=== PATIENT | female | born 2000 | race African-American/Black ===

== ENCOUNTER 2022-02-22 00:33 | Inpatient (IN) | payer BC ==
[2022-02-22 00:39] VITALS: BMI 39.1
[2022-02-22] MEDS ORDERED: ONDANSETRON 4 MG/2 ML VIAL IVPUSH ONE (01:19)
[2022-02-22] MEDS ORDERED: ACETAMINOPHEN 1000 MG/100 ML BAG IVPB ONE (01:19)
[2022-02-22] MEDS ORDERED: morphine CARPU-JECT 4 MG/1 ML DISP.SYRIN IVPUSH ONE (01:37)
[2022-02-22] MEDS ORDERED: morphine SULFATE 4 MG/ML VIAL ONE (01:38)
[2022-02-22] MEDS ORDERED: ONDANSETRON 4 MG/2 ML VIAL ONE ×2 (01:39→16:55)
[2022-02-22 02:39] LABS: BASO % 0.2 % (0-2.0); EOS % 0.1 % (0-4.5); HEMATOCRIT 37.1 % (32.4-45.2); HEMOGLOBIN 12.1 GM/dL (10.7-15.3); LYMPH % 7.8 % (8-40); MCH 28.7 pg (25.7-33.7); MCHC 32.5 g/dl (32.0-36.0); MEAN CELL VOLUME 88.2 fl (80-96); MEAN PLT VOLUME 7.5 fl (7.5-11.1); MONO % 3.7 % (3.8-10.2); NEUT % 88.2 % (42.8-82.8); PLATELET COUNT 349 10^3/uL (134-434); RBC 4.21 M/mm3 (3.60-5.2); RDW 14.7 % (11.6-15.6); WHITE BLOOD COUNT 9.6 K/mm3 (4.0-10.0)
[2022-02-22] MEDS ORDERED: ACETAMINOPHEN INJECTION 100 ML IVPB ONE (02:51)
[2022-02-22 02:59] LABS: CALCIUM 8.7 mg/dL (8.5-10.1); INR 1.28 (0.83-1.09); PROTHROMBIN TIME (PATIENT) 14.7 SEC (9.7-13.0)
[2022-02-22 03:00] LABS: ALBUMIN 3.5 g/dl (3.4-5.0)
[2022-02-22 03:02] LABS: ACTIVATED PTT 30.7 SECONDS (25.2-36.5)
[2022-02-22 04:47] LABS: CREATININE 0.6 mg/dL (0.55-1.3)
[2022-02-22 05:22] LABS: BILIRUBIN,TOTAL 0.5 mg/dL (0.2-1); TOT PROT 7.4 g/dl (6.4-8.2)
[2022-02-22 06:09] LABS: EPI CELLS 11 /uL (0-25.1); HYALINE CASTS 3 /uL (0-3.1); URINE APPEARANCE CLEAR; URINE BACTERIA 1303 /uL (0-1359); URINE BILIRUBIN NEGATIVE (NEGATIVE); URINE COLOR DK YELLOW; URINE GLUCOSE (UA) NEGATIVE (NEGATIVE); URINE KETONE 4+ (NEGATIVE); URINE LEUK ESTERASE 2+ (NEGATIVE); URINE NITRITE NEGATIVE (NEGATIVE); URINE PROTEIN 1+ (NEGATIVE); URINE RBC 49 /uL (0-23.9); URINE WBC 314 /uL (0-25.8)
[2022-02-22] MEDS ORDERED: CEFTRIAXONE 1,000 MG in DEXTROSE 5%-WATER - 50 ML IVPB ONE (06:35)
[2022-02-22] MEDS ORDERED: CEFTRIAXONE 1 GM/50 ML BAG ONE (06:40)
[2022-02-22] MEDS ORDERED: SODIUM CHLORIDE 0.9% 500 ML INFUS.BAG IV ONE (06:42)
[2022-02-22] MEDS ORDERED: SODIUM CHLORIDE 1,000 ML IV SCH ×2 (07:45→18:30)
[2022-02-22] MEDS ORDERED: ONDANSETRON 4 MG/2 ML VIAL IVPUSH PRN ×4 (07:49→18:31)
[2022-02-22 08:32] VITALS: RESP 18
[2022-02-22] MEDS ORDERED: CEFTRIAXONE IVPB ONE (09:00)
[2022-02-22] MEDS ORDERED: SODIUM CHLORIDE IVPB ONE (09:00)
[2022-02-22] MEDS ORDERED: LACTATED RINGERS SOLUTION 1,000 ML IV SCH (14:15)
[2022-02-22] MEDS ORDERED: PROMETHAZINE HCL 25 MG/1 ML VIAL IVPUSH PRN (14:15)
[2022-02-22] MEDS ORDERED: ROCURONIUM BROMIDE 50 MG/5 ML SYRINGE ONE ×2 (16:19→17:14)
[2022-02-22] MEDS ORDERED: MIDAZOLAM HCL 2 MG/2 ML SINGLE DOSE VIAL ONE (16:19)
[2022-02-22] MEDS ORDERED: PROPOFOL 20 ML ONE ×2 (16:19→17:48)
[2022-02-22] MEDS ORDERED: ceFAZolin SODIUM 1 GM VIAL ONE (16:20)
[2022-02-22] MEDS ORDERED: SODIUM CHLORIDE 0.9% P/F 10 ML VIAL IJ ONE (16:20)
[2022-02-22] MEDS ORDERED: LIDOCAINE HCL/PF 2% SDV 5ML VIAL ONE (16:20)
[2022-02-22] MEDS ORDERED: ceFAZolin SODIUM 1 GM VIAL IVPB ONE (16:46)
[2022-02-22] MEDS ORDERED: DEXAMETHASONE SOD PHOSPHATE 4 MG/1 ML VIAL ONE (16:55)
[2022-02-22] MEDS ORDERED: BUPIVACAINE HCL/PF 0.5% (5 MG/ML) 30 ML VIAL IJ ONE (17:38)
[2022-02-22] MEDS ORDERED: KETOROLAC TROMETHAMINE 30 MG/1 ML VIAL ONE (17:48)
[2022-02-22] MEDS ORDERED: GLYCOPYRROLATE 0.2 MG/1 ML VIAL ONE (17:54)
[2022-02-22] MEDS ORDERED: NEOSTIGMINE METHYLSULFATE 0.5 MG/ML - 10 ML MDV ONE (17:55)
[2022-02-22] MEDS ORDERED: ACETAMINOPHEN 1000 MG/100 ML BAG IVPB PRN (18:29)
[2022-02-23] MEDS ORDERED: CEFTRIAXONE 2 GM in DEXTROSE 5%-WATER 100 ML IVPB SCH (10:00)
[2022-02-23 13:32] LABS: BASO % 0.4 % (0-2.0); EOS % 0.1 % (0-4.5); HEMATOCRIT 33.6 % (32.4-45.2); HEMOGLOBIN 10.9 GM/dL (10.7-15.3); LYMPH % 25.8 % (8-40); MCH 28.4 pg (25.7-33.7); MCHC 32.5 g/dl (32.0-36.0); MEAN CELL VOLUME 87.4 fl (80-96); MEAN PLT VOLUME 7.7 fl (7.5-11.1); NEUT % 66.7 % (42.8-82.8); PLATELET COUNT 327 10^3/uL (134-434); RBC 3.85 M/mm3 (3.60-5.2); RDW 14.5 % (11.6-15.6); WHITE BLOOD COUNT 6.4 K/mm3 (4.0-10.0)
[2022-02-23 13:40] LABS: BLOOD UREA NITROGEN 10.1 mg/dL (7-18); CALCIUM 8.1 mg/dL (8.5-10.1); MAGNESIUM 2.1 mg/dL (1.8-2.4)
[2022-02-23 13:43] LABS: PHOSPHOROUS 1.9 mg/dL (2.5-4.9)
[2022-02-23 13:44] LABS: CREATININE 0.6 mg/dL (0.55-1.3)
[2022-02-23] MEDS ORDERED: NAPH,MB-DB/K PH,MBDB POWDER PACKET PO ONE (13:53)
[2022-02-23 15:01] VITALS: BP 120/71; PULSE 88; TEMP 98.2
== END 2022-02-23 15:43 | disposition home or self-care (01) | DRG 343 ==
LOC: JER 00:33 → JERBED 06:39 → J6S 09:06
PROVIDERS: ADMIT Internal Medicine; ATTEND Internal Medicine
PROC: 0DTJ4ZZ Resection of Appendix, Percutaneous Endoscopic Approach (ICD-10-PCS; principal; 2022-02-22 15:30)
DX: K35.80 Unspecified acute appendicitis (principal); E66.9 Obesity, unspecified; Z68.39 Body mass index [BMI] 39.0-39.9, adult
CPT/HCPCS: 36415; 74177-TC; 76830-TC; 80048; 80053; 81003; 82962; 83735; 84100; 84703; 85025; 85610; 85730; 86850; 86900; 86901; 87086; 87186; 88304-TC; 93005; 93010; 94760; 99285-25; C9803-CS; Q9967; U0003; U0005